=== PATIENT | male | born 2005 | race Hispanic/Latino ===

== ENCOUNTER → 2024-12-31 | Outpatient (CLI) | payer OTHER | LOC: M OUTALCOH 07:48 | PROVIDERS: ATTEND Psychiatry & Neurology Psychiatry | DX: F10.20 Alcohol dependence, uncomplicated (principal); F12.10 Cannabis abuse, uncomplicated; F17.200 Nicotine dependence, unspecified, uncomplicated ==

== ENCOUNTER 2025-01-27 16:00 | Outpatient (RCR) | payer OTHER | END 2025-02-01 | LOC: M OUTALCOH 16:00 | PROVIDERS: ATTEND Psychiatry & Neurology Psychiatry | DX: F10.20 Alcohol dependence, uncomplicated (principal); F12.10 Cannabis abuse, uncomplicated; F17.200 Nicotine dependence, unspecified, uncomplicated ==

== ENCOUNTER 2025-03-03 16:00 | Outpatient (RCR) | payer OTHER | END 2025-03-04 | LOC: M OUTALCOH 16:00 | PROVIDERS: ATTEND Psychiatry & Neurology Psychiatry | DX: F10.20 Alcohol dependence, uncomplicated (principal); F12.10 Cannabis abuse, uncomplicated; F17.200 Nicotine dependence, unspecified, uncomplicated ==